=== PATIENT | female | born 1990 | race Two or more races ===

== ENCOUNTER 2019-03-07 11:29 | Observation (INO) | payer SELFPAY ==
[2016-03-31 19:00] VITALS: BP 118/63
[~2019-03-07 11:29] MED LIST: MECL25TA3 PO
[2019-03-07] MEDS ORDERED: IV RINGERS,LACTATED 1000ML 1,000 ML IV SCH (11:40)
[2019-03-07 11:53] LABS: BILIRUBIN,URINE NEGATIVE (NEG); CLARITY,URINE CLEAR; COLOR,URINE YELLOW; NITRITE,URINE NEGATIVE (NEG); PROTEIN,URINE NEGATIVE (NEG-TRACE)
[2019-03-07 12:01] LABS: BACTERIA,URINE MODERATE /HPF (0-FEW); RBC,URINE OCC /HPF (0-2); SQUAMOUS EPITHELIAL CELL,UR MOD /LPF
== END 2019-03-07 13:15 | disposition home or self-care (01) ==
LOC: 3 SO LND 11:29
PROVIDERS: ADMIT Obstetrics & Gynecology; ATTEND Obstetrics & Gynecology
DX: Z34.83 Encounter for supervision of other normal pregnancy, third trimester (principal); Z3A.39 39 weeks gestation of pregnancy
CPT/HCPCS: 36415; 81001; 87086; 87653; G0378; G0379

== ENCOUNTER 2019-03-12 05:52 | Inpatient (IN) | payer SELFPAY ==
[~2019-03-12] VITALS: Ht 172.7 cm; Wt 127.9 kg
[2019-03-12] MEDS ORDERED: fentaNYL PF VIAL 100 MCG/2 ML VIAL IV PRN (06:00)
[2019-03-12] MEDS ORDERED: BUTORPHANOL 2 MG/ML VIAL. IV PRN (06:00)
[2019-03-12] MEDS ORDERED: IV RINGERS,LACTATED 1000ML 1,000 ML IV PRN (06:00)
[2019-03-12] MEDS ORDERED: MAG HYDROX/ALUMINUM HYD/SIMETH 30 ML ORAL.SUSP PO PRN ×2 (06:00→15:30)
[2019-03-12] MEDS ORDERED: OXYTOCIN 30 UNIT/500 ML PREMIX 500 ML IV PRN ×3 (06:00→15:30)
[2019-03-12] MEDS ORDERED: LIDOCAINE 1% PF 30 ML VIAL. INJ PRN (06:00)
[2019-03-12] MEDS ORDERED: TERBUTALINE 1 MG/ML VIAL. SQ PRN (06:00)
[2019-03-12] MEDS ORDERED: ONDANSETRON PF 4 MG/2 ML VIAL. IV PRN (06:00)
[2019-03-12] MEDS ORDERED: 0.9 % SODIUM CHLORIDE 10 ML DISP.SYRIN. IV PRN ×2 (06:00→15:30)
[2019-03-12] MEDS ORDERED: ACETAMINOPHEN 325 MG TABLET. PO PRN ×2 (06:00→15:30)
[2019-03-12] MEDS ORDERED: IBUPROFEN 400 MG TABLET. PO PRN (06:00)
[2019-03-12 06:15] VITALS: BP 122/88
[2019-03-12 06:28] LABS: BILIRUBIN,URINE NEGATIVE (NEG); CLARITY,URINE CLEAR; COLOR,URINE YELLOW; NITRITE,URINE NEGATIVE (NEG); PROTEIN,URINE NEGATIVE (NEG-TRACE)
[2019-03-12 06:29] VITALS: BP 122/88
[2019-03-12 06:37] LABS: SQUAMOUS EPITHELIAL CELL,UR MOD /LPF
[2019-03-12 06:38] LABS: BACTERIA,URINE MODERATE /HPF (0-FEW); RBC,URINE 0 /HPF (0-2)
[2019-03-12 07:10] LABS: BASO % 0 % (0-3); EOS # 0.1 x10^3/uL (0.0-0.7); EOS % 1 % (0-3); HEMATOCRIT 38.9 % (36.0-47.0); LYMPH # 2.6 x10^3/uL (1.0-4.8); LYMPH % 25 % (24-48); MEAN CORPUSCULAR HEMOGLOBIN 29 pg (25-35); MEAN CORPUSCULAR HGB CONC 33 g/dL (31-37); MEAN CORPUSCULAR VOLUME 88 fL (79-100); MONO # 0.7 x10^3/uL (0.0-1.1); MONO % 7 % (0-9); NEUT # 6.8 x10^3/uL (1.8-7.7); NEUT % 66 % (31-73); PLATELET COUNT 241 x10^3/uL (140-400); RED BLOOD COUNT 4.44 x10^6/uL (3.50-5.40); RED CELL DISTRIBUTION WIDTH 13.2 % (11.5-14.5); WHITE BLOOD COUNT 10.2 x10^3/uL (4.0-11.0)
--- NOTE | 2019-03-12 09:35 | PDOC1 ---
OB HISTORY AND PHYSICAL DATE OF ADMISSION DATE OF ADMISSION Date of Admission: Mar 12, 2019 at 05:52 CHIEF COMPLAINT : 4 Para: 3 EDC: Mar 09, 2019 EGA: 40.3 Reason for Admission: Induction of labor Indication for Induction: Post dates Problems: (1) HISTORY OF PRESENT Care: Yes Obstetrical Complications: None Medical Compliations: None LAB SUMMARY Blood Type: A+ Ab Screen: Negative Rubella Screen: Immune RPR/VDRL: Negative HIV: Negative GBS: Negative HBsAG: Negative VTE PROPHYLAXIS ORDERED VTE Prophylaxis Devices: No VTE Pharmacological Prophylax: No OB - History Hx of Present Other Concerns: EDC: 03/09/19 LMP: 05/04/18 HPI: 28y @ 40.3 by 1st trimester u/s presents for schedule indxn. The pt began her care with Dr. Reinoso. Her has been relatively uncomplicat ed. PMH: Denies PSH: denies Meds: PNV All: NKDA OBHx: 3 x TSVD SH: no tob, no EtOH OB labs: A pos /neg, Rub IM, 14.4/43.9, Plt 270, HIV NR, Hep B, NR, Hep C, NR, RPR NR Past Family/Social History * Past Medical, Surgical, Family and Obstetric Histories reviewed from chart. OB - Admission Exam Physical Exam Vitals: Vital Signs Date Time Temp Pulse Resp B/P (MAP) Pulse Ox O2 Delivery O2 Flow Rate FiO2 03/12/19 06:15 93 20 122/88 (99) Room Air 03/12/19 06:29 98.3 98 98.3 Vital Signs Date Time Temp Pulse Resp B/P (MAP) Pulse Ox O2 Delivery O2 Flow Rate FiO2 03/12/19 06:29 98.3 93 18 122/88 (99) 98 Room Air 98.3 FHT: 120's +acels/no decels/mLTV Grass Range: 5-8 min SVE: 1-2/Th/H HEENT: Normal Heart: Regular Rate Lungs: Clear Abdomen: Gravid Assessment/Plan Assessment/Plan A/P 28y @ 40.3 by 1st trimester u/s 1.) Indxn on Pit 2.) LSIL pap s/p colpo (10/24/18) 3.) Fetus cat I FHT 4.) GBS neg Problem Qualifiers (1) : Weeks of gestation: 40 weeks Qualified Codes: Z3A.40 - 40 weeks gestation of JESSICA DUCKWORTH MD Mar 12, 2019 09:35
[2019-03-12] MEDS ORDERED: IV RINGERS,LACTATED 1000ML 1,000 ML IV SCH (13:13)
[2019-03-12] MEDS ORDERED: ePHEDrine PF IN SALINE 50 MG/10 ML SYRINGE. IV PRN (13:15)
[2019-03-12] MEDS ORDERED: diphenhydrAMINE 50 MG/ML VIAL IV PRN (13:15)
[2019-03-12] MEDS ORDERED: ROPIVacaine 0.2% PF 10 ML VIAL. EPID PRN (13:15)
[2019-03-12] MEDS ORDERED: ONDANSETRON PF 4 MG/2 ML VIAL. IVP PRN (13:15)
[2019-03-12] MEDS ORDERED: IV RINGERS,LACTATED 500ML 500 ML IV PRN (13:15)
[2019-03-12] MEDS ORDERED: fentaNYL PF VIAL 100 MCG/2 ML VIAL EPID PRN (13:15)
[2019-03-12] MEDS ORDERED: L&D EPIDURAL CASSETTE 100 ML EPID PRN (13:15)
[2019-03-12] MEDS ORDERED: BUPIVACAINE MPF 0.25% 30 ML VIAL. EPID PRN (13:15)
[2019-03-12] MEDS ORDERED: PROCHLORPERAZINE 10 MG/2 ML VIAL. IV PRN (13:15)
[2019-03-12] MEDS ORDERED: L&D EPIDURAL SYRINGE 50 ML EPID PRN (13:15)
[2019-03-12] MEDS ORDERED: NALOXONE 0.4 MG/ML VIAL. IV PRN (13:15)
[2019-03-12] MEDS ORDERED: LIDOCAINE 2% PF 5 ML VIAL. ONE (14:44)
[2019-03-12] MEDS ORDERED: MMR per PROTOCOL. MC PRN (15:30)
[2019-03-12] MEDS ORDERED: PHENYLEPH/MINERAL OIL/PETROLAT RECTAL OINTMENT TUBE. RC PRN (15:30)
[2019-03-12] MEDS ORDERED: diphenhydrAMINE HCL 25 MG CAPSULE PO PRN (15:30)
[2019-03-12] MEDS ORDERED: BENZOCAINE 20% TOPICAL AEROSOL SPRAY 57GM CAN. TP PRN (15:30)
[2019-03-12] MEDS ORDERED: ZOLPIDEM 5 MG TABLET. PO PRN (15:30)
[2019-03-12] MEDS ORDERED: HYDROCORTISONE 1% TOPICAL OINTMENT 30GM TUBE. TP PRN (15:30)
[2019-03-12] MEDS ORDERED: SIMETHICONE 80 MG TAB.CHEW PO PRN (15:30)
[2019-03-12] MEDS ORDERED: MAGNESIUM HYDROXIDE 2,400 MG/30 ML ORAL.SUSP. PO PRN (15:30)
--- NOTE | 2019-03-12 15:42 | PDOC ---
VAGINAL DELIVERY DATE DATE: 03/12/19 TIME: 15:40 WEIGHT Weight [ ] DIAGNOSIS Patient delivered a viable female infant over intact perineum at 1507. Infant bulb suctioned at perineum. Cord double clamped and cut and handed to waiting RN. Wt 3550. Apgars 8/9. Placenta delivered spontaneously, intact with 3VC. No lacerations observed. Good hemostatis. 20U of pitocin infused with IVFs. EBL 150cc. JESSICA DUCKWORTH MD Mar 12, 2019 15:42
[2019-03-12] MEDS: IBUPROFEN 400 MG TABLET. PO SCH ×2 (16:00→22:47)
[2019-03-12 18:00] VITALS: BP 118/72
[2019-03-12 20:09] VITALS: BP 111/54
[2019-03-13 01:41] VITALS: BP 98/56
[2019-03-13] MEDS: oxyCODONE/APAP 5/325 1 TAB TABLET PO PRN ×2 (06:02→13:22)
[2019-03-13 07:31] LABS: HEMATOCRIT 37.3 % (36.0-47.0); HEMOGLOBIN 12.3 g/dL (12.0-15.5)
--- NOTE | 2019-03-13 09:26 | PDOC ---
PROGRESS NOTES Subjective Subjective Pt with good pain control. Melly PO. Voiding. Minimal lochia. Objective Objective Vital Signs Date Time Temp Pulse Resp B/P (MAP) Pulse Ox O2 Delivery O2 Flow Rate FiO2 03/13/19 06:02 16 100 03/13/19 01:41 97.8 80 98/56 (70) Room Air 97.8 Physical Exam Physical Exam FFNT below umb no C/C/E Assessment Assessment A/P 28y PPD #1 s/p 1.) PP - doing well 2.) LSIL pap s/p colpo (10/24/18) 3.) Cont PP care Comment Review of Relevant I have reviewed the following items rodolfo (where applicable) has been applied. Labs Laboratory Tests Test 03/12/19 06:15 03/13/19 06:50 White Blood Count 10.2 x10^3/uL (4.0-11.0) Red Blood Count 4.44 x10^6/uL (3.50-5.40) Hemoglobin 13.0 g/dL (12.0-15.5) 12.3 g/dL (12.0-15.5) Hematocrit 38.9 % (36.0-47.0) 37.3 % (36.0-47.0) Mean Corpuscular Volume 88 fL (79-100) Mean Corpuscular Hemoglobin 29 pg (25-35) Mean Corpuscular Hemoglobin Concent 33 g/dL (31-37) 33 g/dL (31-37) Red Cell Distribution Width 13.2 % (11.5-14.5) Platelet Count 241 x10^3/uL (140-400) Neutrophils (%) (Auto) 66 % (31-73) Lymphocytes (%) (Auto) 25 % (24-48) Monocytes (%) (Auto) 7 % (0-9) Eosinophils (%) (Auto) 1 % (0-3) Basophils (%) (Auto) 0 % (0-3) Neutrophils # (Auto) 6.8 x10^3/uL (1.8-7.7) Lymphocytes # (Auto) 2.6 x10^3/uL (1.0-4.8) Monocytes # (Auto) 0.7 x10^3/uL (0.0-1.1) Eosinophils # (Auto) 0.1 x10^3/uL (0.0-0.7) Basophils # (Auto) 0.0 x10^3/uL (0.0-0.2) Urine Collection Type Unknown Urine Color Yellow Urine Clarity Clear Urine pH 6.0 Urine Specific Deputy >=1.030 Urine Protein Negative mg/dL (NEG-TRACE) Urine Glucose (UA) Negative mg/dL (NEG) Urine Ketones (Stick) Negative mg/dL (NEG) Urine Blood Negative (NEG) Urine Nitrite Negative (NEG) Urine Bilirubin Negative (NEG) Urine Urobilinogen Dipstick 1.0 mg/dL (0.2 mg/dL) Urine Leukocyte Esterase Small (NEG) Urine RBC 0 /HPF (0-2) Urine WBC 5-10 /HPF (0-4) Urine Squamous Epithelial Cells Mod /LPF Urine Bacteria Moderate /HPF (0-FEW) Urine Mucus Slight /LPF Treponema pallidum Antibody Nonreactive (Nonreactive) Laboratory Tests Test 03/13/19 06:50 Hemoglobin 12.3 g/dL (12.0-15.5) Hematocrit 37.3 % (36.0-47.0) Mean Corpuscular Hemoglobin Concent 33 g/dL (31-37) Medications Current Medications Sodium Chloride (Normal Saline Flush) 3 ml QSHIFT PRN IV AFTER MEDS AND BLOOD DRAWS; Start 03/12/19 at 06:00; Stop 03/13/19 at 07:13; Status DC Ringer's Solution 1,000 ml @ 125 mls/hr Q8H PRN IV hydration Last administered on 03/12/19at 06:51; Start 03/12/19 at 06:00; Stop 03/13/19 at 07:13; Status DC Butorphanol Tartrate (Stadol) 2 mg PRN Q1HR PRN IV Severe labor pain; Start 03/12/19 at 06:00; Stop 03/13/19 at 07:13; Status DC Fentanyl Citrate (Fentanyl 2ml Vial) 100 mcg PRN Q30MIN PRN IV Severe pain Last administered on 03/12/19at 13:14; Start 03/12/19 at 06:00; Stop 03/13/19 at 07:13; Status DC Acetaminophen (Tylenol) 650 mg PRN Q6HRS PRN PO MILD PAIN / TEMP; Start 03/12/19 at 06:00; Stop 03/12/19 at 15:45; Status DC Ondansetron HCl (Zofran) 4 mg PRN Q4HRS PRN IV NAUSEA/VOMITING; Start 03/12/19 at 06:00; Stop 03/13/19 at 07:13; Status DC Al Hydroxide/Mg Hydroxide (Mylanta Plus Xs) 30 ml PRN Q4HRS PRN PO HEARTBURN / GAS; Start 03/12/19 at 06:00; Stop 03/12/19 at 15:45; Status DC Terbutaline Sulfate (Brethine) 0.25 mg 1X PRN PRN SQ SEE COMMENTS; Start 03/12/19 at 06:00; Stop 03/13/19 at 05:59; Status DC Lidocaine HCl (Xylocaine 1% Pf 30ml Vial) 30 ml 1X PRN PRN INJ SEE COMMENTS; Start 03/12/19 at 06:00; Stop 03/13/19 at 07:14; Status DC Oxytocin/Sodium Chloride 500 ml @ 0 mls/hr CONT PRN IV SEE I/O RECORD Last administered on 03/12/19at 06:51; Start 03/12/19 at 06:00; Stop 03/13/19 at 07:13; Status DC Oxytocin/Sodium Chloride 500 ml @ 0 mls/hr CONT PRN PRN IV Post delivery bleeding; Start 03/12/19 at 06:00; Stop 03/13/19 at 07:13; Status DC Ibuprofen (Motrin) 800 mg PRN Q6HRS PRN PO MODERATE PAIN 4-6; Start 03/12/19 at 06:00; Stop 03/12/19 at 15:45; Status DC Ringer's Solution 1,000 ml @ 1,000 mls/hr Q1H IV Last administered on 03/12/19at 14:01; Start 03/12/19 at 13:13; Stop 03/12/19 at 14:12; Status DC Ringer's Solution 500 ml @ 500 mls/hr 1X PRN PRN IV HYPOTENSION; Start 03/12/19 at 13:15; Stop 03/13/19 at 07:13; Status DC Ephedrine Sulfate (ePHEDrine PF IN SALINE SYRINGE) 10 mg PRN Q2MIN PRN IV IF SBP<90; Start 03/12/19 at 13:15; Stop 03/13/19 at 07:13; Status DC Naloxone HCl (Narcan) 0.04 mg PRN Q1MIN PRN IV SEE COMMENTS; Start 03/12/19 at 13:15; Stop 03/13/19 at 07:13; Status DC Fentanyl Citrate (Fentanyl 2ml Vial) 100 mcg PRN 1X PRN EPID FOR ANESTHESIA Last administered on 03/12/19at 14:08; Start 03/12/19 at 13:15; Stop 03/13/19 at 07:13; Status DC Bupivacaine HCl (Sensorcaine Mpf 0.25%) 10 ml PRN 1X PRN EPID FOR ANESTHESIA; Start 03/12/19 at 13:15; Stop 03/13/19 at 07:13; Status DC Fentanyl Citrate 100 ml @ 14 mls/hr CONT PRN EPID PAIN; Start 03/12/19 at 13:15; Stop 03/13/19 at 07:13; Status DC Fentanyl Citrate 50 ml @ 14 mls/hr CONT PRN EPID PAIN Last administered on 03/12/19at 14:07; Start 03/12/19 at 13:15; Stop 03/13/19 at 07:13; Status DC Ondansetron HCl (Zofran) 4 mg PRN Q6HRS PRN IVP NAUSEA/VOMITING; Start 03/12/19 at 13:15; Stop 03/13/19 at 07:13; Status DC Prochlorperazine Edisylate (Compazine) 5 mg PRN Q6HRS PRN IV NAUSEA/VOMITING; Start 03/12/19 at 13:15; Stop 03/13/19 at 07:13; Status DC Diphenhydramine HCl (Benadryl) 12.5 mg PRN Q2HR PRN IV ITCHING; Start 03/12/19 at 13:15; Stop 03/13/19 at 07:13; Status DC Ropivacaine (Naropin 0.2%) 20 ml 1X PRN PRN EPID PER ANESTHESIA Last administered on 03/12/19at 14:08; Start 03/12/19 at 13:15; Stop 03/12/19 at 14:09; Status DC Lidocaine HCl (Lidocaine Pf 2% Vial) 5 ml STSeratis-MED ONCE .ROUTE ; Start 03/12/19 at 14:44; Stop 03/12/19 at 14:44; Status DC Sodium Chloride (Normal Saline Flush) 10 ml QSHIFT PRN IV AFTER MEDS AND BLOOD DRAWS; Start 03/12/19 at 15:30; Stop 03/13/19 at 07:13; Status DC Oxytocin/Sodium Chloride 500 ml @ 62.5 mls/hr CONT PRN IV SEE I/O RECORD; Start 03/12/19 at 15:30; Stop 03/12/19 at 23:29; Status DC Acetaminophen (Tylenol) 650 mg PRN Q6HRS PRN PO MILD PAIN / TEMP; Start 03/12/19 at 15:30 Ibuprofen (Motrin) 800 mg Q8HRS PO Last administered on 03/12/19at 22:47; Start 03/12/19 at 16:00 Docusate Sodium (Colace) 100 mg PRN BID PRN PO CONSTIPATION; Start 03/12/19 at 15:30 Magnesium Hydroxide (Milk Of Magnesia) 2,400 mg PRN DAILY PRN PO CONSTIPATION; Start 03/12/19 at 15:30 Al Hydroxide/Mg Hydroxide (Mylanta Plus Xs) 30 ml PRN Q4HRS PRN PO HEARTBURN / GAS; Start 03/12/19 at 15:30 Simethicone (Gas-X) 80 mg PRN AFTMEALHC PRN PO GAS / BLOATING; Start 03/12/19 at 15:30 Diphenhydramine HCl (Benadryl) 25 mg PRN Q6HRS PRN PO ITCHING; Start 03/12/19 at 15:30 Benzocaine (Americaine) 1 spray PRN QID PRN TP TOPICAL PAIN; Start 03/12/19 at 15:30 Phenyleph/Shark Oil/Min Oil/Petrol (Preparation H) 1 lavon PRN QID PRN RC RECTAL PAIN; Start 03/12/19 at 15:30 Hydrocortisone (Cortaid) 1 lavon PRN QID PRN TP PERINEAL PAIN; Start 03/12/19 at 15:30 Zolpidem Tartrate (Ambien) 5 mg PRN QHS PRN PO INSOMNIA, MAY REPEAT X1; Start 03/12/19 at 15:30 Info (Do NOT chart on this placeholder) 1 ea 1X PRN PRN MC SEE COMMENTS; Start 03/12/19 at 15:30 Info (Do NOT chart on this placeholder) 1 ea 1X PRN PRN MC SEE COMMENTS; Start 03/12/19 at 15:30 Oxycodone/ Acetaminophen (Percocet 5/325) 1 tab PRN Q4HRS PRN PO MILD PAIN 1-3 Last administered on 03/13/19at 06:02; Start 03/12/19 at 15:30 Active Scripts Active Meclizine Hcl 25 Mg Tablet 1 Tab PO TID PRN Vitals/I & O Vital Sign - Last 24 Hours 03/12/19 03/12/19 03/12/19 03/12/19 13:14 13:51 14:07 14:08 Resp 20 20 20 20 O2 Delivery Room Air Room Air Room Air Room Air 03/12/19 03/12/19 03/13/19 03/13/19 18:00 20:09 01:41 06:02 Temp 97.5 97.6 97.8 97.5 97.6 97.8 Pulse 103 94 80 Resp 18 16 16 16 B/P (MAP) 118/72 (87) 111/54 (73) 98/56 (70) Pulse Ox 96 96 100 100 O2 Delivery Room Air Room Air Room Air JESSICA DUCKWORTH MD Mar 13, 2019 09:25
[2019-03-13 11:00] VITALS: BP 101/62
[2019-03-13] MEDS: IBUPROFEN 400 MG TABLET. PO SCH ×2 (13:23→22:00)
[2019-03-13] MEDS ORDERED: FLU VAX QS 2019-20 (36MOS+)/PF 0.5 ML SYRINGE. VAX IM ONE (16:15)
[2019-03-13] MEDS ORDERED: DIPHTH,PERTUSS(ACELL),TET TOX 0.5 ML DISP.SYRIN. VAX IM ONE (16:15)
[2019-03-13 18:06] VITALS: BP 112/61
[2019-03-13 20:58] VITALS: BP 105/67
[2019-03-14] MEDS: IBUPROFEN 400 MG TABLET. PO SCH (04:37)
[2019-03-14] MEDS: DOCUSATE SODIUM 100 MG CAPSULE. PO PRN ×2 (04:38→09:01)
[2019-03-14 04:45] VITALS: BP 121/73
[2019-03-14] MEDS ORDERED: IBUP-1060 PO (08:51)
[2019-03-14] MEDS ORDERED: DOCU-109 PO (08:51)
--- NOTE | 2019-03-14 09:16 | PDOC ---
PROGRESS NOTES Subjective Subjective Pt with good pain control. Melly PO. Voiding. Minimal lochia Objective Objective Vital Signs Date Time Temp Pulse Resp B/P (MAP) Pulse Ox O2 Delivery O2 Flow Rate FiO2 03/14/19 04:45 98.0 72 18 121/73 (89) 98.0 03/13/19 20:58 Room Air 03/13/19 18:06 98 Physical Exam Physical Exam FFNT below umb no C/C/E Assessment Assessment Assessment A/P 28y PPD #2 s/p 1.) PP - doing well 2.) LSIL pap s/p colpo (10/24/18) 3.) D/c home Comment Review of Relevant I have reviewed the following items rodolfo (where applicable) has been applied. Labs Laboratory Tests Test 03/13/19 06:50 Hemoglobin 12.3 g/dL (12.0-15.5) Hematocrit 37.3 % (36.0-47.0) Mean Corpuscular Hemoglobin Concent 33 g/dL (31-37) Microbiology 03/12/19 Urine Culture - Final, Complete 03/12/19 Urine Culture Result 1 ([facility]) - Final, Complete Medications Current Medications Sodium Chloride (Normal Saline Flush) 3 ml QSHIFT PRN IV AFTER MEDS AND BLOOD DRAWS; Start 03/12/19 at 06:00; Stop 03/13/19 at 07:13; Status DC Ringer's Solution 1,000 ml @ 125 mls/hr Q8H PRN IV hydration Last administered on 03/12/19at 06:51; Start 03/12/19 at 06:00; Stop 03/13/19 at 07:13; Status DC Butorphanol Tartrate (Stadol) 2 mg PRN Q1HR PRN IV Severe labor pain; Start 03/12/19 at 06:00; Stop 03/13/19 at 07:13; Status DC Fentanyl Citrate (Fentanyl 2ml Vial) 100 mcg PRN Q30MIN PRN IV Severe pain Last administered on 03/12/19at 13:14; Start 03/12/19 at 06:00; Stop 03/13/19 at 07:13; Status DC Acetaminophen (Tylenol) 650 mg PRN Q6HRS PRN PO MILD PAIN / TEMP; Start 03/12/19 at 06:00; Stop 03/12/19 at 15:45; Status DC Ondansetron HCl (Zofran) 4 mg PRN Q4HRS PRN IV NAUSEA/VOMITING; Start 03/12/19 at 06:00; Stop 03/13/19 at 07:13; Status DC Al Hydroxide/Mg Hydroxide (Mylanta Plus Xs) 30 ml PRN Q4HRS PRN PO HEARTBURN / GAS; Start 03/12/19 at 06:00; Stop 03/12/19 at 15:45; Status DC Terbutaline Sulfate (Brethine) 0.25 mg 1X PRN PRN SQ SEE COMMENTS; Start 03/12/19 at 06:00; Stop 03/13/19 at 05:59; Status DC Lidocaine HCl (Xylocaine 1% Pf 30ml Vial) 30 ml 1X PRN PRN INJ SEE COMMENTS; Start 03/12/19 at 06:00; Stop 03/13/19 at 07:14; Status DC Oxytocin/Sodium Chloride 500 ml @ 0 mls/hr CONT PRN IV SEE I/O RECORD Last administered on 03/12/19at 06:51; Start 03/12/19 at 06:00; Stop 03/13/19 at 07:13; Status DC Oxytocin/Sodium Chloride 500 ml @ 0 mls/hr CONT PRN PRN IV Post delivery bleeding; Start 03/12/19 at 06:00; Stop 03/13/19 at 07:13; Status DC Ibuprofen (Motrin) 800 mg PRN Q6HRS PRN PO MODERATE PAIN 4-6; Start 03/12/19 at 06:00; Stop 03/12/19 at 15:45; Status DC Ringer's Solution 1,000 ml @ 1,000 mls/hr Q1H IV Last administered on 03/12/19at 14:01; Start 03/12/19 at 13:13; Stop 03/12/19 at 14:12; Status DC Ringer's Solution 500 ml @ 500 mls/hr 1X PRN PRN IV HYPOTENSION; Start 03/12/19 at 13:15; Stop 03/13/19 at 07:13; Status DC Ephedrine Sulfate (ePHEDrine PF IN SALINE SYRINGE) 10 mg PRN Q2MIN PRN IV IF SBP<90; Start 03/12/19 at 13:15; Stop 03/13/19 at 07:13; Status DC Naloxone HCl (Narcan) 0.04 mg PRN Q1MIN PRN IV SEE COMMENTS; Start 03/12/19 at 13:15; Stop 03/13/19 at 07:13; Status DC Fentanyl Citrate (Fentanyl 2ml Vial) 100 mcg PRN 1X PRN EPID FOR ANESTHESIA Last administered on 03/12/19at 14:08; Start 03/12/19 at 13:15; Stop 03/13/19 at 07:13; Status DC Bupivacaine HCl (Sensorcaine Mpf 0.25%) 10 ml PRN 1X PRN EPID FOR ANESTHESIA; Start 03/12/19 at 13:15; Stop 03/13/19 at 07:13; Status DC Fentanyl Citrate 100 ml @ 14 mls/hr CONT PRN EPID PAIN; Start 03/12/19 at 13:15; Stop 03/13/19 at 07:13; Status DC Fentanyl Citrate 50 ml @ 14 mls/hr CONT PRN EPID PAIN Last administered on 03/12/19at 14:07; Start 03/12/19 at 13:15; Stop 03/13/19 at 07:13; Status DC Ondansetron HCl (Zofran) 4 mg PRN Q6HRS PRN IVP NAUSEA/VOMITING; Start 03/12/19 at 13:15; Stop 03/13/19 at 07:13; Status DC Prochlorperazine Edisylate (Compazine) 5 mg PRN Q6HRS PRN IV NAUSEA/VOMITING; Start 03/12/19 at 13:15; Stop 03/13/19 at 07:13; Status DC Diphenhydramine HCl (Benadryl) 12.5 mg PRN Q2HR PRN IV ITCHING; Start 03/12/19 at 13:15; Stop 03/13/19 at 07:13; Status DC Ropivacaine (Naropin 0.2%) 20 ml 1X PRN PRN EPID PER ANESTHESIA Last administered on 03/12/19at 14:08; Start 03/12/19 at 13:15; Stop 03/12/19 at 14:09; Status DC Lidocaine HCl (Lidocaine Pf 2% Vial) 5 ml Innoz-MED ONCE .ROUTE ; Start 03/12/19 at 14:44; Stop 03/12/19 at 14:44; Status DC Sodium Chloride (Normal Saline Flush) 10 ml QSHIFT PRN IV AFTER MEDS AND BLOOD DRAWS; Start 03/12/19 at 15:30; Stop 03/13/19 at 07:13; Status DC Oxytocin/Sodium Chloride 500 ml @ 62.5 mls/hr CONT PRN IV SEE I/O RECORD; Start 03/12/19 at 15:30; Stop 03/12/19 at 23:29; Status DC Acetaminophen (Tylenol) 650 mg PRN Q6HRS PRN PO MILD PAIN / TEMP; Start 03/12/19 at 15:30 Ibuprofen (Motrin) 800 mg Q8HRS PO Last administered on 03/14/19at 04:37; Start 03/12/19 at 16:00 Docusate Sodium (Colace) 100 mg PRN BID PRN PO CONSTIPATION, 1ST CHOICE Last administered on 03/14/19at 09:01; Start 03/12/19 at 15:30 Magnesium Hydroxide (Milk Of Magnesia) 2,400 mg PRN DAILY PRN PO CONSTIPATION, 2ND CHOICE; Start 03/12/19 at 15:30 Al Hydroxide/Mg Hydroxide (Mylanta Plus Xs) 30 ml PRN Q4HRS PRN PO HEARTBURN / GAS; Start 03/12/19 at 15:30 Simethicone (Gas-X) 80 mg PRN AFTMEALHC PRN PO GAS / BLOATING; Start 03/12/19 at 15:30 Diphenhydramine HCl (Benadryl) 25 mg PRN Q6HRS PRN PO ITCHING; Start 03/12/19 at 15:30 Benzocaine (Americaine) 1 spray PRN QID PRN TP TOPICAL PAIN; Start 03/12/19 at 15:30 Phenyleph/Shark Oil/Min Oil/Petrol (Preparation H) 1 lavon PRN QID PRN RC RECTAL PAIN; Start 03/12/19 at 15:30 Hydrocortisone (Cortaid) 1 lavon PRN QID PRN TP PERINEAL PAIN; Start 03/12/19 at 15:30 Zolpidem Tartrate (Ambien) 5 mg PRN QHS PRN PO INSOMNIA, MAY REPEAT X1; Start 03/12/19 at 15:30 Info (Do NOT chart on this placeholder) 1 ea 1X PRN PRN MC SEE COMMENTS; Start 03/12/19 at 15:30 Info (Do NOT chart on this placeholder) 1 ea 1X PRN PRN MC SEE COMMENTS; Start 03/12/19 at 15:30 Oxycodone/ Acetaminophen (Percocet 5/325) 1 tab PRN Q4HRS PRN PO MILD PAIN 1-3 Last administered on 03/13/19at 13:22; Start 03/12/19 at 15:30 Influenza Virus Vaccine Quadrival (Afluria Quad 2018-20 (3yr Up) Syringe) 0.5 ml ONCE ONCE VAX IM Last administered on 03/14/19at 09:08; Start 03/13/19 at 16:15; Stop 03/13/19 at 16:16; Status DC Diphtheria/ Tetanus/Acell Pertussis (Boostrix) 0.5 ml ONCE ONCE VAX IM Last administered on 03/14/19at 09:04; Start 03/13/19 at 16:15; Stop 03/13/19 at 16:16; Status DC Active Scripts Active Ibuprofen 800 Mg Tablet 800 Mg PO PRN Q8HRS PRN Colace (Docusate Sodium) 100 Mg Capsule 100 Mg PO BID Meclizine Hcl 25 Mg Tablet 1 Tab PO TID PRN Vitals/I & O Vital Sign - Last 24 Hours 03/13/19 03/13/19 03/13/19 03/14/19 11:00 18:06 20:58 04:45 Temp 98.0 97.8 97.9 98.0 98.0 97.8 97.9 98.0 Pulse 78 81 87 72 Resp 18 18 16 18 B/P (MAP) 101/62 (75) 112/61 (78) 105/67 (80) 121/73 (89) Pulse Ox 100 98 O2 Delivery Room Air Room Air JESSICA DUCKWORTH MD Mar 14, 2019 09:15
[2019-03-14 09:24] VITALS: BP 117/73
--- NOTE | 2019-03-14 10:35 | DS ---
DATE OF DISCHARGE: 03/14/2019 ADMITTING DIAGNOSES: 1. Intrauterine at 40 weeks and 3 days by first trimester ultrasound. 2. Induction of labor. 3. LSIL Pap. DISCHARGE DIAGNOSES: 1. Intrauterine at 40 weeks and 3 days by first trimester ultrasound. 2. Induction of labor. 3. LSIL Pap. PROCEDURE: Spontaneous vaginal delivery. BRIEF HOSPITAL COURSE: The patient is a 28-year-old 4, para 3-0-0-3, at 40 weeks and 3 days by first trimester ultrasound, who presented for scheduled induction. The patient began her care with Dr. Reinoso and had had a relatively uncomplicated . On presentation, the patient was closed and Pitocin was initiated. When her contraction pattern became more regular, her membranes were artificially ruptured. She ultimately delivered that afternoon. See delivery note for full detail. By day #2, the patient was meeting all discharge criteria and desired discharge home. Of note, the patient's hemoglobin went from 13.0 to 12.3 after delivery. DISCHARGE INSTRUCTIONS: The patient was told not to lift anything greater than 20 pounds and have pelvic rest for 6 weeks. CALL IF: The patient was to call if she had fevers, chills, nausea, vomiting, abdominal pain or any additional questions or concerns. FOLLOWUP APPOINTMENT: The patient is to follow up on 04/24/2019, at 10:30 a.m. for a appointment with Dr. Fields. DISCHARGE MEDICATIONS: The patient was given a prescription of Motrin 800 mg 30 pills and Colace 100 mg 30 pills. JESSICA FIELDS MD DR: CHRIS/austyn JOB#: [id number] / [id number] BOZENA
--- NOTE | 2019-03-14 10:40 | NUR ---
Discharge and follow up instructions reviewed with patient. Rx x2 given as ordered. Ambulated with pt out of the hospital with her mom, and all her belongings. She got into a white SUV safely. Pt denied any complaints or problems at time of discharge.
== END 2019-03-14 10:40 | disposition home or self-care (01) | DRG 807 ==
LOC: 3 SO LND 05:52 → 3 NORTH 19:00
PROVIDERS: ADMIT Obstetrics & Gynecology; ATTEND Obstetrics & Gynecology
PROC: 10E0XZZ Delivery of Products of Conception, External Approach (ICD-10-PCS; principal; 2019-03-12)
PROC: 10907ZC Drainage of Amniotic Fluid, Therapeutic from Products of Conception, Via Natural or Artificial Opening (ICD-10-PCS; 2019-03-12)
DX: O34.43 Maternal care for other abnormalities of cervix, third trimester (principal); Z37.0 Single live birth; Z3A.40 40 weeks gestation of pregnancy
CPT/HCPCS: 36415; 81001; 85014; 85018; 85025; 86592; 86850; 86900; 86901; 87086; 90471; 90686; 90715; J2590; J2795; J3010; J7120; G0378